=== PATIENT | male | born 1990 | race Caucasian/White ===

== ENCOUNTER 2021-01-24 12:53 | Emergency (ER) | payer MEDICAID ==
[~2021-01-24] VITALS: Ht 165.1 cm; Wt 77.1 kg
[2021-01-24 13:04] VITALS: Ht 165.1 cm; Wt 77.1 kg
[2021-01-24] MEDS ORDERED: MOT600 PO (13:38)
[2021-01-24 13:57] VITALS: BP 118/79
== END 2021-01-24 13:57 | disposition home or self-care (01) ==
LOC: ED 12:53
DX: K42.9 Umbilical hernia without obstruction or gangrene (principal)